=== PATIENT | female | born 1980 | race Caucasian/White ===

== ENCOUNTER 2018-03-20 15:03 | Emergency (ER) | payer SELFPAY ==
[~2018-03-20] VITALS: Ht 144.8 cm; Wt 60.0 kg
[2018-03-20] MEDS ORDERED: IBUPROFEN 800 MG TABLET PO ONE (16:30)
[2018-03-20] MEDS ORDERED: BACLOFEN 10 MG TABLET PO ONE (16:30)
[2018-03-20 17:09] VITALS: BP 121/61
== END 2018-03-20 17:13 | disposition home or self-care (01) ==
LOC: EMS 15:04
DX: S16.1XXA Strain of muscle, fascia and tendon at neck level, initial encounter (principal); F17.210 Nicotine dependence, cigarettes, uncomplicated; V49.40XA Driver injured in collision with unspecified motor vehicles in traffic accident, initial encounter; Y93.89 Activity, other specified; Y92.89 Other specified places as the place of occurrence of the external cause; Y99.8 Other external cause status
CPT/HCPCS: 99283; 99406

== ENCOUNTER 2023-04-03 14:42 | Emergency (ER) | payer OTHER ==
[~2023-04-03] VITALS: Ht 149.9 cm; Wt 65.0 kg
[2023-04-03 15:20] VITALS: TEMP 98.6
[2023-04-03] MEDS ORDERED: MIRT-149 PO (15:24)
[2023-04-03] MEDS ORDERED: BUPR-50 PO (15:24)
[2023-04-03] MEDS ORDERED: OXYB10TA42 PO (15:44)
[2023-04-03] MEDS ORDERED: PERTUSS(ACELL),DIPH,TET VAC/PF 0.5 ML SYRINGE IM. ONE (15:45)
[2023-04-03 16:30] LABS: BASOPHILS % (AUTO) 0.3 % (0.0-2.0); LYMPHOCYTES # (AUTO) 1.9 K/uL (1.0-4.8); MEAN CORPUSCULAR HEMOGLOBIN 29.6 pg (26.0-34.0); MEAN CORPUSCULAR HGB CONC 32.5 G/dL (31.0-37.0); MEAN CORPUSCULAR VOLUME 91 fL (80-100); MONOCYTES # (AUTO) 0.7 K/uL (0.1-1.0); MONOCYTES % (AUTO) 7.9 % (2.0-9.0); NEUTROPHILS # (AUTO) 6.3 K/uL (1.8-7.7); NEUTROPHILS % (AUTO) 69.8 % (40.0-70.0); PLATELET COUNT (AUTO) 326 K/uL (150-450); RED BLOOD CELL COUNT(AUTO) 4.72 MIL/uL (4.00-5.20); RED CELL DISTRIBUTION WIDTH 14.1 % (11.5-14.5); WHITE BLOOD COUNT (AUTO) 9.1 K/uL (4.5-11.0)
[2023-04-03 16:39] LABS: ANION GAP 12 mmol/L (8-16); CALCIUM, TOTAL 8.7 mg/dL (8.8-10.5); CARBON DIOXIDE 23 mmol/L (22-29); CHLORIDE 103 mmol/L (98-107); CREATININE 0.56 mg/dL (0.60-1.30); GLOMERULAR FILTR. RATE CALC > 60 mL/min (>60); GLUCOSE,RANDOM 84 mg/dL (70-110); POTASSIUM 3.9 mmol/L (3.5-5.1); SODIUM SERUM 137 mmol/L (136-145); UREA NITROGEN, BLOOD 7 mg/dL (7-18)
[2023-04-03 16:45] LABS: ALANINE AMINOTRANSFERASE 44 U/L (12-78); ALBUMIN 4.2 g/dL (3.4-5.0); ALKALINE PHOSPHATASE 91 U/L (46-116); ASPARTATE AMINOTRANSFERASE 29 U/L (15-37); BILIRUBIN,TOTAL 0.2 mg/dL (0.1-1.0); TOTAL PROTEIN, SERUM 7.6 g/dL (6.4-8.2)
[2023-04-03 16:47] LABS: LACTIC ACID 0.9 mmol/L (0.4-2.0)
[2023-04-03] MEDS ORDERED: CEPHALEXIN MONOHYDRATE 500 MG CAPSULE PO ONE (17:30)
[2023-04-03] MEDS ORDERED: DOXYCYCLINE HYCLATE 100 MG TABLET PO ONE (17:30)
[2023-04-03] MEDS ORDERED: LIDOCAINE 1% 10 ML VIAL SQ ONE (17:30)
[2023-04-03] MEDS ORDERED: CEPH-558 PO (17:53)
[2023-04-03] MEDS ORDERED: IBUP-1554 PO (17:53)
[2023-04-03] MEDS ORDERED: DOXY-354 PO (17:53)
[2023-04-03 18:00] VITALS: BP 110/78; PULSE 97; RESP 16
[2023-04-03] MEDS ORDERED: AMOX1TAB16 PO (18:18)
== END 2023-04-03 18:14 | disposition home or self-care (01) ==
LOC: EMS 14:46
DX: S61.012A Laceration without foreign body of left thumb without damage to nail, initial encounter (principal); L03.012 Cellulitis of left finger; F17.210 Nicotine dependence, cigarettes, uncomplicated; Z98.890 Other specified postprocedural states; W50.3XXA Accidental bite by another person, initial encounter; Y93.89 Activity, other specified; Y92.89 Other specified places as the place of occurrence of the external cause; Y99.8 Other external cause status
CPT/HCPCS: 64450; 99284; 80053; 83605; 85025; 36415; 73140; 90715; 90471; J3490

== ENCOUNTER 2023-04-05 13:24 | Emergency (ER) | payer OTHER ==
[~2023-04-05] VITALS: Ht 149.9 cm; Wt 65.0 kg
[~2023-04-05 13:24] MED LIST: AMOX1TAB16 PO; BUPR-50 PO; DOXY-354 PO; IBUP-1554 PO; MIRT-149 PO; OXYB10TA42 PO
[2023-04-05 13:26] VITALS: TEMP 98
[2023-04-05 16:00] VITALS: BP 105/64; PULSE 81; RESP 17
== END 2023-04-05 16:29 | disposition home or self-care (01) ==
LOC: EMS 13:25
DX: T14.8XXA Other injury of unspecified body region, initial encounter (principal); F17.210 Nicotine dependence, cigarettes, uncomplicated; W50.3XXA Accidental bite by another person, initial encounter; Y93.89 Activity, other specified; Y92.89 Other specified places as the place of occurrence of the external cause; Y99.8 Other external cause status
CPT/HCPCS: 99281; Z7502